=== PATIENT | male | born 1930 | race African-American/Black ===

== ENCOUNTER 2021-07-16 11:31 | Inpatient (IN) | payer OTHER, SELFPAY ==
[2021-07-16] MEDS ORDERED: Labetalol HCl 100 MG/20 ML VIAL SLOW IVP PRN (12:07)
[2021-07-16] MEDS ORDERED: hydrALAZINE 20 MG/ML VIAL SLOW IVP PRN ×2 (12:07→13:05)
[2021-07-16 12:12] LABS: Base Excess (BEa) 3.2 mEq/L (-2.0 to +3.0); CO2 Tension 38.1 mmHg (35.0-45.0); Calcium, Ionized (arterial) 1.16 mmol/L (1.12-1.30); Hemoglobin (Hb) 10.4 g/dL (14.0-18.0); O2 Tension (PaO2), arterial 151.1 mmHg (> 60.0); Potassium - ABG Lab 3.82 mmol/L (3.70-5.30); pH, Arterial 7.47 (7.35-7.45)
[2021-07-16 12:14] LABS: ALV-art Gradient 86.475 mmHg (0-20); Puncture Site LRA
[2021-07-16] MEDS ORDERED: Fentanyl CADD 100 ML IV SCH ×2 (12:15→15:00)
[2021-07-16] MEDS ORDERED: HumaLOG 300 UNITS/3 ML VIAL SC PRN (13:02)
[2021-07-16] MEDS ORDERED: Ondansetron PF 4 MG/2 ML Vial IVP PRN (13:02)
[2021-07-16] MEDS ORDERED: Dextrose 5% in Water 1,000 ML IV PRN ×2 (13:02→14:46)
[2021-07-16] MEDS ORDERED: Dextrose 50% Abboject 50 ML SYRINGE SLOW IVP PRN ×2 (13:02→14:46)
[2021-07-16] MEDS ORDERED: Morphine 2 MG/ML VIAL SLOW IVP PRN ×2 (13:02→15:00)
[2021-07-16] MEDS ORDERED: fentaNYL Citrate/PF 2,000 MCG in Sodium Chloride 0.9% 60 ML IV PRN (13:05)
[2021-07-16 13:28] LABS: #Eosinphils 0.1 thou/uL (0.0-0.7); #Lymphocytes 0.7 thou/uL (1.20-3.40); #Monocytes 0.6 thou/uL (0.11-0.59); #Neutrophils 11.1 thou/uL (1.40-6.50); %Basophils 0.2 % (0.0-1.0); %Eosinophils 0.5 % (0.0-10.0); %Lymphocytes 5.9 % (21.0-51.0); %Monocytes 4.8 % (0.0-10.0); %Neutrophils 88.6 % (42.0-75.0); Hemoglobin 10.2 g/dL (14.0-18.0); Mean Corpuscular HGB CONC 33.5 g/dL (32.0-36.0); Mean Corpuscular Hemoglobin 28.4 pg (27.0-31.0); Mean Corpuscular Volume 84.9 fL (78.0-98.0); Mean Platelet Volume 9.9 fL (7.4-10.4); Platelet Count 258 thou/uL (130-400); RBC Distribution Width 13.2 % (11.5-14.5); White Blood Cell (WBC) Count 12.6 thou/uL (4.8-10.8)
[2021-07-16 13:29] LABS: SARS-CoV-2 NAA Rapid Test Not Detected (NotDetected)
[2021-07-16 13:37] LABS: INR-International Normal Ratio 1.2; Prothrombin Time 15.3 sec (12.0-14.7)
[2021-07-16 13:38] LABS: PTT 37.7 sec (22.9-36.1)
[2021-07-16 13:42] LABS: Magnesium 1.9 mg/dL (1.6-2.6); Phosphorus 2.4 mg/dL (2.3-4.7)
[2021-07-16 13:44] LABS: ALT (SGPT) 21 U/L (8-55); AST (SGOT) 20 U/L (5-34); Albumin 3.1 g/dL (3.4-4.8); Alkaline Phosphatase 102 U/L (40-110); Anion Gap 11 mmol/L (10-20); BUN (Urea Nitrogen) 26 mg/dL (8.4-25.7); Bilirubin, Total 0.8 mg/dL (0.2-1.2); Calc. Creatinine Clearance 0 mL/min (70-130); Carbon Dioxide 31 mmol/L (23-31); Chloride 102 mmol/L (98-107); Glucose 471 mg/dL (83-110); Potassium 4.1 mmol/L (3.5-5.1); Protein, Total 6.1 g/dL (5.8-8.1); Sodium 140 mmol/L (136-145)
[2021-07-16] MEDS ORDERED: Sodium Chloride 0.9% 1,000 ML IV SCH (13:45)
[2021-07-16] MEDS ORDERED: Lorazepam 2 MG/ML VIAL SLOW IVP PRN ×2 (15:00→16:40)
[2021-07-16] MEDS ORDERED: Propofol 1,000 MG/100 ML VIAL IV PRN (15:00)
[2021-07-16] MEDS ORDERED: Fentanyl BOLUS 250 ML IVPB PRN (15:00)
[2021-07-16] MEDS ORDERED: Propofol BOLUS 1,000 MG/100 ML VIAL IV PRN (15:00)
[2021-07-16] MEDS ORDERED: DISCONTINUE PREVIOUS NARCOTIC PAIN MEDICATIONS AND BENZODIAZEPINES FS SCH (15:00)
[2021-07-16] MEDS ORDERED: Morphine 4 MG/ML VIAL SLOW IVP PRN (16:41)
[2021-07-16] MEDS ORDERED: Scopolamine 1.5 mg/72 hour Patch TD SCH (16:45)
[2021-07-16 17:21] VITALS: BMI 21.7
[2021-07-16 18:23] VITALS: BP 151/84
[2021-07-16 19:37] VITALS: TEMP 98.3
== END 2021-07-16 20:10 | disposition hospice, inpatient (51) | DRG 85 ==
LOC: ERS 11:31 → CCU 12:49
PROVIDERS: ADMIT Surgery; ATTEND Surgery
PROC: 0D9670Z Drainage of Stomach with Drainage Device, Via Natural or Artificial Opening (ICD-10-PCS; principal; 2021-07-16)
PROC: 5A1935Z Respiratory Ventilation, Less than 24 Consecutive Hours (ICD-10-PCS; 2021-07-16)
DX: S06.5X0A Traumatic subdural hemorrhage without loss of consciousness, initial encounter (principal); J96.90 Respiratory failure, unspecified, unspecified whether with hypoxia or hypercapnia; S06.A0XA Traumatic brain compression without herniation, initial encounter; S06.1X0A Traumatic cerebral edema without loss of consciousness, initial encounter; W17.89XA Other fall from one level to another, initial encounter; Z51.5 Encounter for palliative care; Z66 Do not resuscitate; Z20.822 Contact with and (suspected) exposure to COVID-19; S01.311A Laceration without foreign body of right ear, initial encounter; I25.2 Old myocardial infarction; E11.65 Type 2 diabetes mellitus with hyperglycemia; I10 Essential (primary) hypertension; G30.9 Alzheimer's disease, unspecified; F02.80 Dementia in other diseases classified elsewhere, unspecified severity, without behavioral disturbance, psychotic disturbance, mood disturbance, and anxiety; R40.2432 Glasgow coma scale score 3-8, at arrival to emergency department; S00.81XA Abrasion of other part of head, initial encounter; I25.10 Atherosclerotic heart disease of native coronary artery without angina pectoris
CPT/HCPCS: 36600; 71045; 82805; 83735; 83880; 84100; 94002; 94003; 94760; G0390; J2060; J2270; J3010; J7050; U0002

== ENCOUNTER 2021-07-16 20:10 | Inpatient (IN) | payer OTHER ==
[2021-07-16] MEDS ORDERED: Morphine 4 MG/ML VIAL SLOW IVP PRN ×2 (20:28→21:07)
[2021-07-16] MEDS ORDERED: Lorazepam 2 MG/ML VIAL SLOW IVP PRN ×2 (20:28→21:08)
[2021-07-16] MEDS ORDERED: Scopolamine 1.5 mg/72 hour Patch TOP PRN (20:29)
[2021-07-16] MEDS: Lorazepam 2 MG/ML VIAL SLOW IVP SCH (21:17)
[2021-07-16] MEDS ORDERED: Morphine 4 MG/ML VIAL SLOW IVP SCH (22:00)
[2021-07-16] MEDS: Morphine 10 MG/ML VIAL SLOW IVP SCH (22:26)
[2021-07-17] MEDS: Morphine 10 MG/ML VIAL SLOW IVP SCH ×3 (00:08→03:15)
[2021-07-17 00:10] VITALS: BP 131/62; TEMP 97.7
[2021-07-17] MEDS: Lorazepam 2 MG/ML VIAL SLOW IVP SCH (00:57)
== END 2021-07-17 04:54 | disposition expired | DRG 951 ==
LOC: CCU 20:10 → UNDOADMIN 20:12 → CCU 20:12 → ONC 22:48
PROVIDERS: ADMIT Family Medicine; ATTEND Family Medicine
DX: Z51.5 Encounter for palliative care (principal); Z66 Do not resuscitate; J96.90 Respiratory failure, unspecified, unspecified whether with hypoxia or hypercapnia; R40.2343 Coma scale, best motor response, flexion withdrawal, at hospital admission; R40.2113 Coma scale, eyes open, never, at hospital admission; R40.2213 Coma scale, best verbal response, none, at hospital admission; I25.10 Atherosclerotic heart disease of native coronary artery without angina pectoris; I10 Essential (primary) hypertension; F03.90 Unspecified dementia, unspecified severity, without behavioral disturbance, psychotic disturbance, mood disturbance, and anxiety; E11.65 Type 2 diabetes mellitus with hyperglycemia; I25.2 Old myocardial infarction; Z79.899 Other long term (current) drug therapy
CPT/HCPCS: J2060; J2270